=== PATIENT | male | born 1960 | race Caucasian/White ===

== ENCOUNTER 2021-01-09 19:49 | Emergency (ER) | payer OTHER ==
[~2021-01-09] VITALS: Ht 170.2 cm; Wt 79.4 kg
[2021-01-09 19:49] VITALS: BP 127/87
[2021-01-09] MEDS ORDERED: PANTOPRAZOLE 40 MG INJ VIAL IVP ONE (19:55)
[2021-01-09] MEDS ORDERED: ONDANSETRON 4 MG/2 ML VIAL IVP ONE (19:55)
--- NOTE | 2021-01-09 20:00 | NUR ---
BETY FROM [facility], PT. IS A 60 Y/0 MALE THAT CAME INTO ED WITH C/O OF BLOODY VOMIT. PER EMS REPORT, PT. HAD AN EPISODE OF VOMITING BLOOD AROUND 5PM. PT. STATES 0/10 ON THE PAIN SCALE AT THIS TIME. SKIN IS PINK/WARM/DRY; AAOX4; LUNGS CLEAR BL; HR EVEN AND REGULAR; PT DENIES ANY FEVER, CP, SOB, OR COUGH AT THIS TIME; VSS; PATIENT POSITIONED FOR COMFORT; HOB ELEVATED; BEDRAILS UP X2; BED DOWN. ER MD MADE AWARE OF PT STATUS.
--- NOTE | 2021-01-09 20:06 | NUR ---
PT RECIEVED IN ED W/ VENT SETTINGS OF AC/VC 500 +5 f12 PROVIDED BY EMT/FACILITY. PT REFUSED VENT AT THIS TIME AND ED MD IS AWARE. PT WAS PLACED ON CA 60% 12L W/ NO DISTRESS NOTED. CURRENT SPO2 99% HR 111 f28. VENT WAS PLACED ON STDBY AT BEDSIDE W/ SETTINGS PROVIDED BY EMT/FACILITY. VENT REMAINS PLUGGED INTO RED OUTLET W/ AMBU AT BEDSIDE. WILL CONTINUE TO MONITOR.
--- NOTE | 2021-01-09 20:07 | NUR ---
EKG PERFORMED AT BEDSIDE. EKG READS SINUS TACHYCARDIA @ 108
--- NOTE | 2021-01-09 20:11 | NUR ---
xray at bedside
[2021-01-09 20:31] LABS: BASOPHILS # (AUTO) 0.1 K/uL (0.00-0.22); BASOPHILS % (AUTO) 0.3 % (0.0-2.0); EOSINOPHILS # (AUTO) 0.1 K/uL (0-0.4); EOSINOPHILS % (AUTO) 0.6 % (0.0-4.0); HEMATOCRIT 38.2 % (36-52); HEMOGLOBIN 12.3 g/dL (12.0-18.0); LYMPHOCYTES # (AUTO) 3.9 K/uL (2.0-11.5); MEAN CORPUSCULAR HEMOGLOBIN 27 pg (27-31); MEAN CORPUSCULAR HGB CONC 32 g/dL (33-37); MEAN CORPUSCULAR VOLUME 84.4 fL (80-94); MONOCYTES # (AUTO) 0.9 K/uL (0.8-1.0); MONOCYTES % (AUTO) 5.5 % (1.7-9.3); NEUTROPHILS # (AUTO) 11.9 K/uL (1.8-7.7); NEUTROPHILS % (AUTO) 70.6 % (42.2-75.2); PLATELET COUNT (AUTO) 476 K/uL (140-450); RED BLOOD CELL COUNT(AUTO) 4.53 MIL/uL (4.20-6.10); RED CELL DISTRIBUTION WIDTH 15.9 % (11.6-13.7); WHITE BLOOD COUNT (AUTO) 16.9 K/uL (4.8-10.8)
[2021-01-09 20:49] LABS: ALBUMIN 3.9 g/dL (3.4-5.0); ANION GAP 9.6 (8-16); CARBON DIOXIDE 36.4 mmol/L (21-32); CREATININE 0.8 mg/dL (0.6-1.3); TOTAL BILIRUBIN 0.3 mg/dL (0.0-1.0)
[2021-01-09 20:53] LABS: PROTHROMBIN TIME 10.9 secs (10.8-13.4)
--- NOTE | 2021-01-09 21:12 | NUR ---
PT SPO2 WAS 100% AND CA WAS TITRATED 40% 10L PT APPEARS TO BE KENDALL WELL. PT Sx AND Lg AMT ONEAL/BLDY SECR WAS ASPIRATED VIA Sx AREVALO. WILL CONTINUE TO MONITOR
[2021-01-09] MEDS ORDERED: NACL 0.9% 1,000 ML IV ONE (21:40)
--- NOTE | 2021-01-09 22:45 | NUR ---
SUCTIONED PT. FOR SECRETIONS. SECRETIONS APPEARED TO BE GREEN AND BROWN IN COLOR. Addendum: 01/09/21 at 2320 by TIM PT. TOLERATED WELL. ALL NEEDS MET AT THIS TIME.
[2021-01-09] MEDS ORDERED: cefTRIAXone 1,000 MG VIAL ONE (23:35)
--- NOTE | 2021-01-09 23:39 | NUR ---
SPOKE WITH LANE FROM [facility] TO GIVE MORE CLINICAL INFORMATION. PER LANE, WILL CALL BACK WITH BED FOR TRANSFER.
[2021-01-09] MEDS ORDERED: LOV40I SUBQ (23:54)
[2021-01-09] MEDS ORDERED: FLO.1 GT (23:54)
[2021-01-09] MEDS ORDERED: CALC1TAB72 GT (23:54)
[2021-01-09] MEDS ORDERED: ASPI-1822 GT (23:54)
[2021-01-09] MEDS ORDERED: METO25TA GT (23:54)
[2021-01-09] MEDS ORDERED: MELA3TER GT (23:54)
[2021-01-09] MEDS ORDERED: SIME80TA22 GT (23:54)
[2021-01-09] MEDS ORDERED: FEXO-8 GT (23:54)
[2021-01-09] MEDS ORDERED: HYDR-1102 GT (23:56)
[2021-01-09] MEDS ORDERED: ATOR10TA GT (23:56)
[2021-01-10] MEDS ORDERED: MORPHINE SULFATE 4 MG/ML SYR IVP ONE (00:25)
[2021-01-10] MEDS ORDERED: ONDANSETRON 4 MG/2 ML VIAL IVP ONE (00:25)
[2021-01-10] MEDS ORDERED: ONDANSETRON 4 MG/2 ML VIAL ONE (00:25)
--- NOTE | 2021-01-10 00:30 | NUR ---
PT. VOMITED DARK BROWN EMESIS 100CC.
--- NOTE | 2021-01-10 00:30 | NUR ---
ZOFRAN 4MG GIVEN IVP. PATIENT REMAINS ON CARDIAC MONTIOR. VSS.
--- NOTE | 2021-01-10 00:52 | NUR ---
Patient to be transferred to [facility]. Is being transferred due to INSURANCE. Receiving facility has accepting physician and available space. ER physician has signed transfer form. Patient or responsible green party has agreed to transfer and signed form. Patient belongings inventoried and will be sent with patient. Copy of nursing notes, lab reports, EKG, Physicians Orders and X-rays to be sent with patient. Report called to TRI REECE at receiving facility. [facility] [place] ambulance service has been called for transfer. ETA is AT 0230.
--- NOTE | 2021-01-10 00:52 | NUR ---
CALLED REPORT TO TRI REECE ([facility]).
--- NOTE | 2021-01-10 01:07 | NUR ---
RT AT BEDSIDE FOR REVALUATION.
--- NOTE | 2021-01-10 01:13 | NUR ---
PT CURRENTLY ON CA 40% 10L. WATER IS 1/2 FULL W/ REPLACEMENT @ BEDSIDE. PT WAS Sx W/ THK ONEAL SECR W/ HR 117 SPO2 95%. WILL CONTINUE TO MONITOR.
--- NOTE | 2021-01-10 01:55 | NUR ---
PATIENT HAS NO FUTHER EPISODES OF N/V. PATIENT RESTING IN BED WITH EYES CLOSED. RESPIRATIONS ARE EVEN AND UNLABORED. SKIN IS WARM AND DRY TO TOUCH. BED IS LOCKED AND IN LWOEST POSITION. PATIENT REMAINS ON COOL AIR AEROSOL.
--- NOTE | 2021-01-10 02:27 | NUR ---
SUCTIONED PT. WITH GREEN/BROWN SPUTUM. PT. TOLERATED WELL AND VOICES NO COMPLAINTS.
--- NOTE | 2021-01-10 03:08 | NUR ---
[facility] AT BEDSIDE
--- NOTE | 2021-01-10 03:08 | NUR ---
REPORT GIVEN TO GIO BARTLETT WITH [facility] AND DOCUMENTATION GIVEN TO [facility]. RT AT BEDSIDE ASSISTING WITH TRANSFER TO [facility].
[2021-01-10 03:10] VITALS: BP 120/76
--- NOTE | 2021-01-10 03:10 | NUR ---
PT. LEFT VIA GURNEY BY [facility] ACCOMPANIED BY 2 MERCHANDISING COORDINATOR AND 1 RN.
== END 2021-01-10 03:10 | disposition short-term general hospital (02) ==
LOC: MED 19:49
DX: K92.0 Hematemesis (principal); Z20.822 Contact with and (suspected) exposure to COVID-19; R10.13 Epigastric pain; E11.9 Type 2 diabetes mellitus without complications; Z98.890 Other specified postprocedural states
CPT/HCPCS: 36415; 71045; 80053; 83605; 83690; 85025; 85610; 85730; 86886; 86900; 86901; 87040; 87426; 93005; 96361; 96365; 96375; 96376; 99285; C9113; J0696; J2270; J2405; J7030

== ENCOUNTER 2021-01-19 10:46 | Inpatient (IN) | payer OTHER, SELFPAY ==
[~2021-01-19] VITALS: Ht 182.9 cm; Wt 74.8 kg
[2021-01-19 10:46] VITALS: BP 149/76
[~2021-01-19 10:46] MED LIST: ASPI-1822 GT; ATOR10TA GT; CALC1TAB72 GT; FEXO-8 GT; FLO.1 GT; HYDR-1102 GT; LOV40I SUBQ; MELA3TER GT; METO25TA GT; SIME80TA22 GT
--- NOTE | 2021-01-19 10:47 | NUR ---
Patient BIBA ALS from [facility], transferred to bed 9. RN evaluating the patient at bedside.
--- NOTE | 2021-01-19 10:50 | NUR ---
RECEIVED REPORT FROM MEDIC, PATIENT TX HERE FROM [facility] WITH HX OF CARETAKERS NOTING PATIENT WAS EXHIPING SOB AT 1000 AM, sAO2 DROPPED TO 80'S, MEDICS SUMMONED. PATIENT HAS HX OF COVID 19 05/29, WAS INTUBATED, THEN TRACHED, IS ON O2 TO TRACH. BVM RESP PROVIDED BY MEDICS, SAO2 IMPROVED TO 97%. PATIENT ARRIVES AWAKE, ALERT, PALE AND PROFUSELY DIAPHROETIC PLACED ON MATERIAL REQUISITIONER SHOWING ST, SAO2 96%, RT X 2 AT BEDSIDE FOR DEEP SUCTIONING, PLACED PATIENT ON HUMIDIFIED O2 MD UMAÑA DONE, ORDERS RECEIVED. BED LOW AND LOCKED, BOTH SIDE RAILS UP.
[2021-01-19] MEDS ORDERED: NACL 0.9% 1,000 ML IV ONE (11:10)
[2021-01-19] MEDS ORDERED: LEVALBUTEROL 0.63 MG/3 ML NEBU INH ONE (11:10)
--- NOTE | 2021-01-19 11:30 | NUR ---
RT REMAINS AT BEDSIDE MONITORING PATIENTS TRACH AND HUMIDIFIED O2. PATIENT IS ALERT, ABLE TO COMMUNICATE WITH HANDS AND LIPS. URINAL PROVIDED FOR URINE COLLECTION.
--- NOTE | 2021-01-19 11:43 | NUR ---
Blood culture and sample collected, walked to lab and handed to CPT. Khris
--- NOTE | 2021-01-19 12:28 | NUR ---
Isacc dewey swab collected, handed to CPT Khris at ER bedside.
--- NOTE | 2021-01-19 12:32 | NUR ---
# 15 FR Straight catheter with utilizing sterile technique. Immediate return of 100mL brown urine noted. Pt tolerated procedure well.
[2021-01-19 12:34] LABS: ALBUMIN 2.9 g/dL (3.4-5.0); CARBON DIOXIDE 34.9 mmol/L (21-32); CREATININE 0.8 mg/dL (0.6-1.3); TOTAL BILIRUBIN 0.7 mg/dL (0.0-1.0)
--- NOTE | 2021-01-19 12:36 | NUR ---
UA sample collected by straight cath, handed to CPT Nati.
[2021-01-19 12:39] LABS: POTASSIUM 2.9 mmol/L (3.5-5.1)
[2021-01-19 12:46] LABS: HEMATOCRIT 34.9 % (36-52); MEAN CORPUSCULAR HEMOGLOBIN 27 pg (27-31); MEAN CORPUSCULAR HGB CONC 32 g/dL (33-37); MEAN CORPUSCULAR VOLUME 85.6 fL (80-94); PLATELET COUNT (AUTO) 419 K/uL (140-450); RED BLOOD CELL COUNT(AUTO) 4.08 MIL/uL (4.20-6.10); RED CELL DISTRIBUTION WIDTH 15.7 % (11.6-13.7)
[2021-01-19 12:52] LABS: WHITE BLOOD COUNT (AUTO) 25.7 K/uL (4.8-10.8)
[2021-01-19] MEDS ORDERED: VANCOMYCIN 1,000 MG in DEXTROSE 5% 250 ML IV ONE (12:55)
[2021-01-19] MEDS ORDERED: PIPERACILLIN/TAZOBACTAM 3.375 GM in DEXTROSE 5% 50 ML IV ONE (12:55)
[2021-01-19] MEDS ORDERED: NACL 0.9% 1,500 ML IV ONE (12:55)
[2021-01-19] MEDS ORDERED: PIPERACILLIN/TAZOBACTAM 3.375 GM VIAL IV ONE (13:00)
[2021-01-19 13:01] LABS: PROTHROMBIN TIME 12.2 secs (10.8-13.4)
[2021-01-19 13:11] LABS: APPEARANCE,URINE HAZY (CLEAR); BILIRUBIN,URINE 2+ (NEGATIVE); BLOOD, URINE TRACE-I (NEGATIVE); COLOR,URINE BROWN (YELLOW); LEUKOCYTE ESTERASE ,URINE NEGATIVE (NEGATIVE); NITRITE, URINE POSITIVE (NEGATIVE); UGLUCOSE NEGATIVE (NEGATIVE)
[2021-01-19 13:21] LABS: WBC,URINE 0-5 /HPF (0-5)
[2021-01-19 13:21] LABS: LYMPHOCYTES % (MANUAL) 2 % (20-46)
[2021-01-19 13:25] LABS: COARSE GRANULAR CASTS,URINE 0-10 /LPF (None Seen)
[2021-01-19] MEDS ORDERED: VANCOMYCIN 1,000 MG VIAL ONE (13:47)
--- NOTE | 2021-01-19 13:59 | NUR ---
PLACED ON HIGH FLOW 60% FIO2 35L TEMP 36
--- NOTE | 2021-01-19 14:03 | NUR ---
PLACED ON HIGH FLOW FIO2 60% FLOW 35 LPM TEMP 36 DEGRESS
--- NOTE | 2021-01-19 14:10 | NUR ---
RT AT BEDSIDE, PLACED ON HIGH FLOW O2 @ 60% RATE 35, TEMP 36.0 C TOLERATING WELL, RESTING WITH EYES CLOSED.
--- NOTE | 2021-01-19 14:26 | NUR ---
GOLD ASSAYER AT BEDSIDE DRAWING REPEAT LACTIC ACID
--- NOTE | 2021-01-19 15:08 | NUR ---
AWAKE AND ALERT BREATH SOUNDS BILATERAL COARSE RHONCHI TRACHEAL SUCTION FOR MOERATE SEMI THICK YELLOW SECRETIONS AIRWAY PATENT TRANSFERRED PATIENT FROM ED-9 TO MST-115 LOC REMOVED FROM HIGH FLOW TO TRACH MASK PLACED ON SUPPLEMENTAL OXYGEN VIA E-TANK AT 8 LPM TO TRACH MASK SATURATION 99% HR 125 TOLERATED TRANSFER WELL WITHOUT NO APPARENT DISTRESS NOTED
[2021-01-19 15:15] VITALS: BP 129/79
--- NOTE | 2021-01-19 15:15 | NUR ---
PT ARRIVED FROM ER ON GURNEY, PT PLACED ON TELE MONITOR, BEDSIDE REPORT RECEIVED FROM GAME TECHNICIAN, PT AWAKE, ALERT, ON VERBAL AT BASE LINE, FOLLOWS COMMANDS, ABLE TO MOUTH/GESTURE NEEDS, TRACH TO O2, TRANSFERRED TO BED WITH FULL ASSIST, SKIN WARM DRY COLOR WNL, CAP REFILL < 3SEC, SKIN INTACT, ABD SOFT NON DISTENDED, GT IN PLACE, PIV TO RIGHT HAND 20G, VANCO INFUSING, PT ORIENTED TO ROOM AND FLOOR, SAFETY MEASURES IN PLACE, CALL COYNE WITHIN REACH, PLAN OF CARE REVIEWED.
--- NOTE | 2021-01-19 15:16 | NUR ---
PLACED BACK ON HIGH FLOW TO TRACH MASK FIO2 55% FLOW 30 LPM TEMP 36.0 DEGREES F
[2021-01-19] MEDS ORDERED: ZOLPIDEM 5 MG TAB PO PRN (15:20)
[2021-01-19] MEDS ORDERED: ACETAMINOPHEN 325 MG TAB PO PRN (15:20)
[2021-01-19] MEDS ORDERED: POTASSIUM CHLORIDE 10 MEQ TABER PO PRN (15:20)
[2021-01-19] MEDS ORDERED: DOCUSATE SODIUM 100 MG GELCAP PO PRN (15:20)
[2021-01-19] MEDS ORDERED: guaiFENesin DM 200/20 MG-10 ML 10 ML UDC PO PRN (15:20)
[2021-01-19] MEDS ORDERED: ALBUTEROL SULFATE/IPRATROPIU 3 ML SOL IH PRN (15:20)
[2021-01-19] MEDS ORDERED: NACL 0.9% 2,000 ML IV ONE (15:25)
--- NOTE | 2021-01-19 15:31 | NUR ---
REPORTED DR. NY THAT CRITICAL LAB VALUE LACTIC ACID 2.2, NEW ORDER OBTAINED, 2L OF BOLUS, WILL CARRY OUT. BRAD BOOTH.
--- NOTE | 2021-01-19 15:37 | NUR ---
Patient will be admitted to care of DR HINSON. Admited to TELE Will go to room 115A Belongings list completed. Report to OPAL BARTLETT
[2021-01-19 17:03] LABS: CHOL/HDL RATIO 1.7 (1-4.5); FREE T4 (FREE THYROXINE) 1.38 ng/dL (0.76-1.46); MAGNESIUM 1.5 mg/dL (1.8-2.4); PHOSPHORUS 3.7 mg/dL (2.5-4.9); THYROID STIMULATING HORMONE 0.41 uIU/mL (0.34-3.74)
--- NOTE | 2021-01-19 17:03 | NUR ---
REPORTED DR. NY THAT PATIENT'S POTASSIUM LEVEL 2.9, NEW ORDER OBTAINED, WILL CARRY OUT.
--- NOTE | 2021-01-19 17:03 | NUR ---
RECEIVED REPORT FROM CHARGE NURSE BRAD FOR CONTINUITY OF CARE. PATIENT AWAKE, ALERT, BEDREST, TRACH TO T BAR WITH HIGH FLOW 30L, FIO2 55%. O2 SAT 95%. IV TO RIGHT HAND 20G WITH NS BOLUS INFUSING. G TUBE IN PLACE. SKIN WARM AND DRY. TACHYCARDIA, HR 120. LOW JAMEEL SCORE. HIGH RISK FOR SKIN BREAKDOWN. PATIENT ABLE TO ANSWER SIMPLE QUESTIONS BY NODDING HEAD OR SHAKE HEAD. ABDOMEN SOFT NON TENDER. ORIENTED PATIENT TO THE ROOM AND CALL LIGHT. SAFETY MEASURES IN PLACE, WILL CONTINUE TO MONITOR.
[2021-01-19] MEDS ORDERED: CRUSHER, PILL MC ONE (17:05)
[2021-01-19] MEDS: HYDROcodone/APAP 7.5/325 MG 1 TAB PO PRN (17:10)
[2021-01-19] MEDS: SIMETHICONE 80 MG TAB.CHEW GT SCH ×2 (17:10→23:08)
[2021-01-19] MEDS ORDERED: KCL 20 MEQ/WATER INJ PREMIX 200 ML IV SCH (17:15)
[2021-01-19] MEDS ORDERED: POTASSIUM CHLORIDE 20% 40 MEQ/15 ML UDC GT SCH (17:30)
[2021-01-19] MEDS: NACL 0.9% 1,000 ML IV SCH (18:25)
[2021-01-19] MEDS: hydrALAZINE 10 MG TAB GT SCH ×2 (18:29→23:08)
--- NOTE | 2021-01-19 18:29 | NUR ---
HYDRALAZINE GIVEN SCHEDULED FOR BP 143/85, KCL GIVEN FOR K+ 2.9. PATIENT COMPLAINT OF SOB AND NEEDED TO BE SUCTION. RT CALLED AND STATED WILL COME TO CHECK THE PATIENT.
--- NOTE | 2021-01-19 18:35 | NUR ---
RT CALLED AGAIN TO CHECK THE PATIENT. PER RT, HE IS ON THE WAY TO CHECK THE PATIENT.
[2021-01-19] MEDS: ALBUTEROL SULFATE/IPRATROPIU 3 ML SOL IH SCH (18:47)
--- NOTE | 2021-01-19 18:57 | NUR ---
INFORMED DR. HINSON REGARDING THE MAGNESIUM LEVEL 1.5, WILL FOLLOW UP WITH THE MD ORDER.
[2021-01-19] MEDS ORDERED: MAG SULF 2000 MG/WATER PREMIX 50 ML IV ONE (19:00)
--- NOTE | 2021-01-19 19:02 | NUR ---
PT WAS SEEN AND ASSESSED. SPO2 96%. SUCTION MODERATE TO LARGE AMOUNT OF YELLOW THICK SECTIONS FROM TRACH TUBE. HHN TX GIVEN AND PT TOLERATED TX WELL WITH NO ADVERSE REACTION.
--- NOTE | 2021-01-19 19:06 | NUR ---
PT REQUESTED FOR SPEAKING VALVE. HOWEVER PT WAS EDUCATED THAT HE CANNOT HAVE SPEAKING VALVE AT THIS TIME DUO TO INCREASE IN SECRETIONS. WILL ASSESS FOR SPEAKING VALVE LATER.
--- NOTE | 2021-01-19 19:25 | NUR ---
ENDORSED PATIENT TO RN UNIT MANAGER RN FOR CONTINUITY OF CARE. PATIENT IN STABLE CONDITION.
--- NOTE | 2021-01-19 19:30 | NUR ---
RECIEVED BEDSIDE ENDORSEMENT FROM DAY SHIFT RN, PT LYING IN BED RESTING, A&0X1/2, ABLE TO FOLLOW SIMPLE COMMANDS, AFEBRILE, ST ON MONITOR, TRACH COLLOR TO HF NC 30LPM FIO2 55%, ABD SOFT AND NON TENDER TO TOUCH, SKIN WARM DRY AND INTACT, AFEBRILE, GTUBE CLAMPED, INCONTINENT, RW PIV INFILTRATED, DAY SHIFT RN TO INSERT NEW LINE, PT SHOWING NO SIGNS OF ACUTE DISTRESS, SAFETY MEASURES IN PLACE, WILL CONTINUE WITH CURRENT POC
--- NOTE | 2021-01-19 19:40 | NUR ---
DAY SHIFT RN INSERTED NEW PIV LINE, RFA 20 G INFUSING NS @ 100MLS, LFA 20 G SALINE LOCKED
[2021-01-19 20:00] VITALS: BP 159/71
[2021-01-19] MEDS: METOPROLOL 25 MG TAB GT SCH (20:41)
[2021-01-19] MEDS: PIPERACILLIN/TAZOBACTAM 3.375 GM in DEXTROSE 5% 50 ML IV SCH (20:45)
--- NOTE | 2021-01-19 21:10 | NUR ---
ADMINISTERED 2100H MEDICATIONS PER MD ORDERS
--- NOTE | 2021-01-19 22:30 | NUR ---
PT ASSISTED IN TURNING WHILE CHANGING LINEN AND CLEANING
--- NOTE | 2021-01-19 23:12 | NUR ---
ADMINISTERED 0000H MEDICATIONS PER MD ORDERS. ORAL CARE AND SUCTIONING PROVIDED
[2021-01-20] VITALS (17 sets, daily range): BP systolic 49–142; BP diastolic 28–87
--- NOTE | 2021-01-20 00:42 | NUR ---
STARTED GTUBE FEEDING GLUCERNA 1.2 @ 10MLS/HR GOAL RATE 40MLS/HR W/ FWF 250MLS Q6H
[2021-01-20] MEDS: NACL 0.9% 1,000 ML IV SCH (01:20)
--- NOTE | 2021-01-20 02:03 | NUR ---
ORAL CARE AND SUCTIONING GIVEN, PT SHOWING NO SIGNS OF ACUTE DISTRESS
--- NOTE | 2021-01-20 02:40 | NUR ---
PT WAS ABLE TO ASSIST IN TURNING WHILE CHANGING OF LINEN
[2021-01-20] MEDS: PIPERACILLIN/TAZOBACTAM 3.375 GM in DEXTROSE 5% 50 ML IV SCH ×3 (04:04→21:07)
--- NOTE | 2021-01-20 04:04 | NUR ---
ADMINISTERED 0500H MEDICATION PER MD ORDERS
[2021-01-20] MEDS: SIMETHICONE 80 MG TAB.CHEW GT SCH ×3 (05:26→18:49)
[2021-01-20] MEDS: hydrALAZINE 10 MG TAB GT SCH ×3 (05:26→12:36)
--- NOTE | 2021-01-20 05:37 | NUR ---
ADMINISTERED 0600H MEDICATIONS PER MD ORDERS, ORAL CARE AND SUCTIONING PROVIDED
--- NOTE | 2021-01-20 06:02 | NUR ---
PT STILL ON HIGH FLOW. PT TOLERATING WELL. WILL CONTINUE TO MONITOR.
[2021-01-20 06:26] LABS: HEMATOCRIT 33.5 % (36-52); HEMOGLOBIN 10.5 g/dL (12.0-18.0); LYMPHOCYTES % (AUTO) 3.6 % (20.5-51.1); MEAN CORPUSCULAR HEMOGLOBIN 27 pg (27-31); MEAN CORPUSCULAR HGB CONC 32 g/dL (33-37); MEAN CORPUSCULAR VOLUME 85.3 fL (80-94); MONOCYTES # (AUTO) 1.8 K/uL (0.8-1.0); MONOCYTES % (AUTO) 6.4 % (1.7-9.3); NEUTROPHILS # (AUTO) 25.9 K/uL (1.8-7.7); PLATELET COUNT (AUTO) 417 K/uL (140-450); RED BLOOD CELL COUNT(AUTO) 3.92 MIL/uL (4.20-6.10); RED CELL DISTRIBUTION WIDTH 15.9 % (11.6-13.7)
[2021-01-20 06:36] LABS: ANION GAP 8.8 (8-16); CREATININE 0.6 mg/dL (0.6-1.3); POTASSIUM 3.8 mmol/L (3.5-5.1)
[2021-01-20 06:40] LABS: WHITE BLOOD COUNT (AUTO) 28.8 K/uL (4.8-10.8)
[2021-01-20] MEDS: ALBUTEROL SULFATE/IPRATROPIU 3 ML SOL IH SCH ×3 (07:00→19:09)
--- NOTE | 2021-01-20 07:13 | NUR ---
ENDORSED TO DAY SHIFT RN FOR CONTINUITY OF CARE
--- NOTE | 2021-01-20 07:24 | NUR ---
PT RECEIVED FROM PHARMACY SALESPERSON RN. EYES ARE OPEN. PT RESTING IN BED, NO S/SX OF DISTRESS AT THIS TIME. ON HIGH ÁNGELA NC 30L. PT TOLERATING WELL.
--- NOTE | 2021-01-20 07:57 | NUR ---
PT HAD 180 MLS OF EMESIS. PT OFFERED ORAL RINSE REPOSITIONED, AND CLEANED.
[2021-01-20 08:18] LABS: T4 (THYROXINE) 7.7 ug/dL (4.5-12.0)
[2021-01-20] MEDS: HYDROcodone/APAP 7.5/325 MG 1 TAB PO PRN (08:29)
[2021-01-20] MEDS: METOPROLOL 25 MG TAB GT SCH ×2 (08:30→20:40)
--- NOTE | 2021-01-20 08:45 | NUR ---
PT AWAKE AND ALERT. CHANGED TRACH GAUZE. TRACH GAUZA IS DRAINING YELLOW AND RED BLOODY. RN IN ROOM AND AWARE. NO SOB OR DISTRESS NOTED. CURRENTLY ON HIGH FLOW.
[2021-01-20] MEDS: ONDANSETRON 4 MG/2 ML VIAL IM/IVP PRN ×2 (08:53→13:38)
[2021-01-20] MEDS ORDERED: ASPIRIN 81 MG TAB.CHEW GT SCH (09:00)
[2021-01-20] MEDS ORDERED: ENOXAPARIN 40 MG/0.4 ML SYR SUBQ SCH (09:00)
[2021-01-20] MEDS ORDERED: LEVOFLOXACIN 750 MG/D5W PREMIX 150 ML IV SCH (09:00)
[2021-01-20] MEDS ORDERED: MAGNESIUM OXIDE 400 MG TAB GT SCH (09:00)
[2021-01-20] MEDS ORDERED: PANTOPRAZOLE 40 MG TABEC PO SCH (09:00)
[2021-01-20] MEDS ORDERED: ATORVASTATIN 20 MG TAB GT SCH (09:00)
--- NOTE | 2021-01-20 09:01 | NUR ---
PATIENT HAS BEEN SCREENED AND CATEGORIZED HIGH NUTRITION RISK. PATIENT WILL BE SEEN WITHIN 1-2 DAYS OF ADMISSION. 01/20/21-01/21/[address]
[2021-01-20] MEDS ORDERED: INSULIN LISPRO SLIDING SCALE 100 UNITS/ML VIAL SUBQ PRN (09:15)
[2021-01-20] MEDS ORDERED: DEXTROSE 50% 50 ML SYR IVP PRN (09:15)
--- NOTE | 2021-01-20 09:20 | NUR ---
PT HAD 100 ML OF EMESIS. NM PROVIDED EMESIS BAG. PT AND RT PRESENT IN ROOM.
--- NOTE | 2021-01-20 09:21 | NUR ---
PT HAD A VOMITING EPISODE. RN AND PT IN ROOM. VOMIT IS BROWN. NO DISRESS NOTED. CHANGED TRACH GAUZE. WILL CONTINUE TO MONITOR.
--- NOTE | 2021-01-20 10:11 | NUR ---
DC PLANNING: MICHELA SPOKE WITH [facility] AT [place], CONFIRMED THAT THEY RECEIVED FAXED CLINICALS. CM ASSIGNED IS SHARYN, SHE WILL CALL ZOE ABERNATHY WITH ANY CLINICAL QUESTIONS, AND WILL CALL DYAN DIAMOND COORDINATOR WITH CONTINUED AUTH. ENDORSED THAT PATIENT WILL BE PLACED ON VENT OPPOSED TO T-BAR AND THAT CURRENT FIO2 IS 55%, PATIENT IS NOT STABLE FOR TRANSFER TODAY. CM WILL CONTINUE TO FOLLOW FOR NEEDS.
[2021-01-20] MEDS: DEXT 5% /NACL 0.9% 1,000 ML IV SCH ×2 (10:24→19:55)
--- NOTE | 2021-01-20 11:00 | NUR ---
PT HAS 3RD EPISODE OF EMESIS. PT CLEANED AND SAT UP. NO S/SX OF DISTRESS AT THIS TIME
[2021-01-20] MEDS: BLOOD GLUCOSE MONITORING 1 DEV DEV FS SCH ×3 (11:43→20:39)
--- NOTE | 2021-01-20 11:46 | NUR ---
MD KIDD AT BEDSIDE. ASKED TO HAVE PATIENT PLACED ON VENTILATOR. RESPIRATORY AWARE AND FOLLOWING MDS ORDERS. PT EDUCATED VERBALIZED UNDERSTANDING. CHICHO ANA
--- NOTE | 2021-01-20 11:56 | NUR ---
BG IS 194. GAVE 2 UNITS OF INSULIN PER SLIDING SCALE PER MD ORDER. PT TOLERATED.
--- NOTE | 2021-01-20 11:57 | NUR ---
PT VOMITED 50ML. RT IN ROOM, SWITCHING PT TO VENTILATOR. PT TOLERATING. CALL LIGHT WITHIN REACH.
[2021-01-20] MEDS ORDERED: MORPHINE SULFATE 2 MG/ML SYR IVP PRN (12:15)
[2021-01-20] MEDS ORDERED: MORPHINE SULFATE 2 MG/ML SYR ONE (12:16)
--- NOTE | 2021-01-20 12:30 | NUR ---
PLACED PATIENT ON VENTILATOR PER MD KIDD'S ORDERS. AC14,500,+5,100% AND TITRATE FIO2 TOLERATED. MD KIDD AT NURSE STATION. PATIENT HAS SHILEY 6 TRACH AND VT IS NOT DELIVERED. PAGING MD KIDD.
--- NOTE | 2021-01-20 12:40 | NUR ---
CHRISTIANO ED DR TO CHANGE PATIENT'S TRACH PER MD KIDD'S ORDER. ORDER IS TO CHANGE TO PORTEX 7 CUFFED. MONITORING PATIENT. RN AND RT AT BEDSIDE. SN'D SMALL AMOUNT OF RED BROWN SECRETIONS. STOMA IS VERY LARGE. AIR LEAK. ADDED EXTRA GAUZE. BREATH SOUNDS DIMINISHED. GAVE HHN TREATMENT. WILL CONTINUE TO MONITOR PATIENT.
--- NOTE | 2021-01-20 12:40 | NUR ---
ER DOCTOR AND RT PRESENT IN ROOM. ER DOCTOR REPLACED TRACH. PT NOW ON VENTILATOR.
--- NOTE | 2021-01-20 12:50 | NUR ---
PER DR. KIDD SAID TO TRANSFER PT TO ICU.
--- NOTE | 2021-01-20 12:50 | NUR ---
TRACH CHANGED BY ED MD. PT NOW HAS PORTEX 7 CUFFED. VENT SETTINGS CHARTED. VOLUMES STILL LOW. OAGED MD KIDD. PER MD KIDD TO TRANSFER PATIENT TO ICU. RN AWARE. WILL TRANSFER PATIENT. WILL CONTINUE TO MONITOR.
[2021-01-20] MEDS ORDERED: LORazepam 2 MG/ML VIAL ONE (12:52)
--- NOTE | 2021-01-20 13:15 | NUR ---
REPORT GIVEN TO articulation officer. FAMILY UPDATED ON CONTINUITY OF CARE. FAMILY VERBALIZED UNDERSTANDING . CHICHO [phone] STATED SHE WILL CALL FOR ANY UPDATES AND VERBALIZED GRATITUDE FOR UPDATES THROUGH OUT THE SHIFT.
--- NOTE | 2021-01-20 13:20 | NUR ---
PATIENT TRANSFERRED TO ICU WITH NO INCIDENT. WILL CONTINUE TO MONITOR.
[2021-01-20] MEDS ORDERED: PROPOFOL 1000 MG/100 ML PREMIX 100 ML IV ONE (13:25)
--- NOTE | 2021-01-20 13:25 | NUR ---
PATIENT RECEIVED IN ICU BED 5 FROM ED NURSE VIA MST BED. PATIENT SUPINE, HOB 30 DEGREES. LABORED BREATHING WITH ACCESORY MUSCLE USE. TRACH TO VENT: ACVC FIO2 100%, VT 500, RR 14, PEEP 7. G TUBE IN PLACE, FEEDING ON HOLD DUE TO PATIENT VOMITING 4 TIMES IN MST. R FA 20G, L FA 20G INFUSING D5 @ 100 ML/HR. CHARGE NURSE, RT, AND RN AT BEDSIDE SETTLING PATIENT. SOCIAL WORK ASSOCIATE IN PLACE, SAFETY MEASURES IN PLACE.
--- NOTE | 2021-01-20 13:25 | NUR ---
PT TRANSFERRED TO ICU
[2021-01-20] MEDS ORDERED: NACL 0.9% 1,000 ML IV SCH (13:30)
[2021-01-20] MEDS ORDERED: PROPOFOL 1000 MG/100 ML PREMIX 100 ML IV PRN (13:30)
[2021-01-20] MEDS ORDERED: NOREPINEPHRINE 4 MG in DEXTROSE 5% 250 ML IV PRN (13:35)
--- NOTE | 2021-01-20 13:45 | NUR ---
BOLUS RUNNING AT THIS TIME. MD ORDERS IN: PROPOFOL, ABGS, PICC LINE, XRAY.
--- NOTE | 2021-01-20 14:00 | NUR ---
ABG DONE WITH NO INCIDENT. PAGED MD KIDD FOR RESULTS. NEW SETTINGS CHARTED. WILL CONTINUE TO MONITOR PATIENT.
--- NOTE | 2021-01-20 14:18 | NUR ---
PT. WITH LOW JAMEEL SCALE AT HIGH RISK, CONTINUE TO FOLLOW PRESSURE INJURY PREVENTION INTERVENTIONS. -TURN AND REPOSITION PATIENT Q 2H -ASSESS AND MONITOR SKIN CONDITION DURING POSITION CHANGE -OFFLOAD BILATERAL HEELS BY PLACING PILLOWS UNDER CALVES AT ALL TIMES, UNLESS OTHERWISE CONTRAINDICATED -PRESSURE REDISTRIBUTION BY PLACING PILLOWS AND OFFLOADING SACRALCOCCYX -KEEP SKIN CLEAN AND DRY AT ALL TIMES.
--- NOTE | 2021-01-20 14:53 | NUR ---
01/20/21 RD INITIAL ASSESSMENT COMPLETED PLEASE REFER TO NUTRITION ASSESSMENT UNDER CARE ACTIVITY FOR ESTIMATED NUTRITIONAL NEEDS. 1. IF PATIENT IS NOT TOLERATING ENTERAL NUTRITION, HOLD. RESTART WHEN MEDICALLY APPROPRIATE AT 10 ML/HR AND INCREASE BY 10 ML/HR Q4H. 2. CURRENT TUBE FEEDING ORDER IS GLUCERNA 1.2 @ 40 ML/HR 3. WHEN PATIENT IS MEDICALLY CLEARED RECOMMEND INCREASING GOAL RATE TO GLUCERNA 1.2 @ 70 ML/HR WITH FREE WATER FLUSH OF 225 ML Q6H -THIS WILL PROVIDE 2016 KCAL AND [address]. [address] TO FOLLOW-UP 2-3 DAYS, HIGH RISK YOU DOTY RD
[2021-01-20] MEDS ORDERED: VANCOMYCIN 500 MG in DEXTROSE 5% 100 ML IV SCH (15:00)
[2021-01-20] MEDS ORDERED: VANCOMYCIN PER PHARMACY MC PRN (15:00)
[2021-01-20] MEDS: VANCOMYCIN 1,000 MG in DEXTROSE 5% 250 ML IV SCH (15:39)
--- NOTE | 2021-01-20 15:52 | NUR ---
PATIENT DESATURATING TO 34% SPO2 ON DOCUMENTED VENT SETTINGS. RT CALLED AND NOW AT BEDSIDE. 1000ML NS BOLUS STARTED AT THIS TIME PER MD ORDERS, ALL NEW TUBING USED.
--- NOTE | 2021-01-20 16:10 | NUR ---
LEVOPHED STARTED AT 10MCG/MIN PER ED DR. CRAIG, TO TITRATE KEEP MAP OVER 65.
--- NOTE | 2021-01-20 16:14 | NUR ---
DC PLANNING: PATIENT IS TRACH/VENT MICHELA SPOKE WITH PATIENTS PARI BY PHONE. [facility] PATIENT HAD COVID LAST YEAR, AND HAS HAD HOSPITALIZATIONS AND PLACEMENT IN ACUTE REHAB SINCE THEN INCLUDING [facility]. CAME FROM [facility] BECAUSE OF SOB AND VOMITING, PARI STATES THAT PATIENT WAS EXTUBATED AFTER STAYING AT [facility] IN [place], WAS RECANNULATED BECAUSE OF PNEUMONIA. PATIENT WAS ABLE TO DRESS HIMSELF, STAND AND SIT ON EDGE OF BED WITH ASSIST OF 1. WAS ABLE TO EAT 3 MEALS, RECEIVED SUPPLEMENTAL PEG FEEDINGS NOC. WAS CONTINENT WHILE AT [facility]. PATIENT TRANSFERRED TO ICU TODAY, PARI AMBIVALENT ABOUT PATIENT RETURNING TO [facility]. DISCUSSED THE POSSIBILITY OF TRANSFER ONCE PATIENT IS STABLE IF THAT IS WHAT [facility] DECIDES. NO FURTHER QUESTIONS FROM PARI, MICHELA WILL CONTINUE TO FOLLOW FOR NEEDS. Addendum: 01/20/21 at 1623 by Moni Silva CM MICHELA SPOKE WITH SHARYN ([phone])MICHELA FOR [facility] REGARDING PATIENT STATUS ENDORSED PATIENT TRANSFER TO ICU, TRACH TO VENT AND INCREASED FIO2, SHARYN STATES PATIENT IS AUTH'D FOR CONTINUED STAY, MICHELA WILL UPDATE HER TOMORROW. SHARYN STATES SHE WILL FAX LETTER OF CONTINUED AUTHORIZATION.
--- NOTE | 2021-01-20 16:18 | NUR ---
PICC LINE NURSE AT BEDSIDE AT THIS TIME. STAT CHEST XRAY ORDERED FOR PLACEMENT CONFIRMATION.
--- NOTE | 2021-01-20 16:25 | NUR ---
2ML EPINEPHRINE ADMINISTERED IVP AT THIS TIME. PATIENT BECAME BRADYCARDIC TO 44 BPM.
--- NOTE | 2021-01-20 16:43 | NUR ---
BLOOD GLUCOSE CHECKED, 156, NO INSULIN COVERAGE, PATIENT FEEDING ON HOLD DUE TO VOMITING EPISODES EARLIER TODAY.
--- NOTE | 2021-01-20 16:45 | NUR ---
DR KIDD SPEAKING TO ON THE PHONE AT THIS TIME. EXPLAINING PATIENT STATUS AND ANSWERED ALL QUESTIONS.
[2021-01-20] MEDS ORDERED: NOREPINEPHRINE 16 MG in DEXTROSE 5% 250 ML IV PRN (16:50)
--- NOTE | 2021-01-20 16:50 | NUR ---
MD KIDD AT BEDSIDE. CHANGED TRACH TO SHILEY 8 XLT. MD KIDD MADE VENT CHANGES. A/C PC 36 RR 30 IT 0.80 PEEP 10 AND ORDER TO TITRATE TOLERATED. WILL CONTINUE TO MONITOR PATIENT.
--- NOTE | 2021-01-20 17:10 | NUR ---
ABG DONE WITH NO INCIDENT. PAGEWard KIDD WAITING FOR CALL BACK.
[2021-01-20] MEDS: PHENYLEPHRINE 10 MG in NACL 0.9% 250 ML IV PRN ×3 (17:18→22:00)
[2021-01-20] MEDS ORDERED: MIDAZOLAM MDV 100 MG in NACL 0.9% 80 ML IV SCH (17:20)
--- NOTE | 2021-01-20 17:26 | NUR ---
PATIENT HR WENT IN 40S. BAGGING PATIENT AT THIS TIME. MEDICAL STAFF AT BEDSIDE. Addendum: 01/20/21 at 1727 by Segun Govea RT WRONG TIME. CORRECT TIME IS 4144
[2021-01-20] MEDS ORDERED: fentaNYL citrate - 50mL vial 2.5 MG in NACL 0.9% 200 ML IV PRN (17:45)
--- NOTE | 2021-01-20 18:53 | NUR ---
PATIENT AND RT AT BEDSIDE AT THIS TIME. PATIENT CONDITION EXPLAINED TO , ALL QUESTIONS ANSWERED, SHE VERBALIZES UNDERSTANDING.
[2021-01-20] MEDS ORDERED: ALBUTEROL SULFATE/IPRATROPIU 3 ML SOL IH SCH (19:00)
[2021-01-20] MEDS: ACETYLCYSTEINE 10% (100 MG/ML) 100 MG/ML VIAL INH SCH (19:09)
--- NOTE | 2021-01-20 19:16 | NUR ---
ENDORSED TO COMPLIANCE AND CONTROL ANALYST NURSE FOR CONTINUITY OF CARE.
--- NOTE | 2021-01-20 19:20 | NUR ---
RECIEVED BEDSIDE ENDORSEMENT FROM DAY SHIFT RN, PT IN CRITICAL CONDITION, FAMILY AT BEDSIDE, RASS -3, ST ON MONITOR, TRACH TO VENT, AC PC FIO2 100% RATE 30 PEEP 10, [address] AND CLAMPED, FC IN PLACE DRAINING VIA GRAVITY, ESTELLA PICC INFUSING LEVOPHED, NEOSYNEPHRINE, FENTANYL, VERSED AND D5 NS, SKIN WARM DRY AND INTACT, SAFETY MEASURES IN PLACE, WILL CONTINUE WITH CURRENT POC
[2021-01-20] MEDS ORDERED: PIPERACILLIN/TAZOBACTAM 3.375 GM VIAL IV ONE (20:50)
[2021-01-20] MEDS: ATROPINE 0.4 MG/ML VIAL IVP SCH ×2 (21:30→21:31)
[2021-01-20] MEDS ORDERED: ATROPINE 1 MG/10 ML SYR IVP ONE (21:30)
--- NOTE | 2021-01-20 21:34 | NUR ---
PT HAS NO PULSE, CODE BLUE CALLED, CPR STARTED
--- NOTE | 2021-01-20 21:34 | NUR ---
AT BEDSIDE. PT HAS NO PULSE. CODE BLUE CALLED. CPR STARTED. SEE CODE BLUE SHEET FOR DETAILS.
--- NOTE | 2021-01-20 21:50 | NUR ---
DURING CODE BLUE, DR. CRAIG CHANGED PT TRACH TUBE AND INTUBATED PT WITH ETT SIZE 8 AND SECURED @ 26CM. COLOR CHANGE ON CO2 DETECTOR. XRAY RESULTS RECOMMENDED TO PULL BACK ETT. DR. CRAIG AT BEDSIDE AND ETT WAS PULL BACK. ANOTHER XRAY WAS TAKEN.
--- NOTE | 2021-01-20 22:35 | NUR ---
AT BEDSIDE. PT HAS NO PULSE. CODE BLUE CALLED. CPR STARTED. SEE CODE BLUE SHEET FOR DETAILS.
--- NOTE | 2021-01-20 22:35 | NUR ---
PT HAS NO PULSE, CODE BLUE CALLED, CPR STARTED
[2021-01-20] MEDS ORDERED: PHENYLEPHRINE 10 MG/ML VIAL ONE (22:55)
--- NOTE | 2021-01-20 23:28 | NUR ---
AT BEDSIDE. PT HAS NO PULSE. CODE BLUE CALLED. CPR STARTED. SEE CODE BLUE SHEET FOR DETAILS.
--- NOTE | 2021-01-20 23:28 | NUR ---
PT HAS NO PULSE, CODE BLUE CALLED, CPR STARTED
--- NOTE | 2021-01-20 23:29 | NUR ---
ABG RESULTS WERE REPORTED TO DR. CRAIG.
--- NOTE | 2021-01-20 23:36 | NUR ---
VENT SETTINGS CHANGED AFTER GETTING PULSE. AC/VC RR 32, VT 325, +15, FiO2 100%. SPO2 92% DR. CRAIG AT BEDSIDE AND AGREED TO CURRENT SETTINGS. WILL CONTINUE TO MONITOR PT.
[2021-01-20] MEDS ORDERED: SODIUM BICARBONATE 8.4% PFS 50 MEQ/50 ML SYR IVP ONE (23:38)
--- NOTE | 2021-01-20 23:50 | NUR ---
DR. NEAL CALLED BACK. DOCTOR WAS UPDATED THAT PT CODED 2X; LAST ABG RESULTS; CURRENT VENT SETTINGS, AND MEDS ORDERS GIVEN BY DR. CRAIG DURING CODE BLUE. DR. NEAL OKAY WITH ORDERS. AND CONTINUE TO MONITOR PT.
[2021-01-21] VITALS: BP 98/40
[2021-01-21] MEDS: hydrALAZINE 10 MG TAB GT SCH
[2021-01-21] MEDS: SIMETHICONE 80 MG TAB.CHEW GT SCH
[2021-01-21] MEDS ORDERED: SODIUM BICARBONATE 4.2% 5 MEQ/10 ML SYR IV ONE ×2 (00:02)
[2021-01-21 00:09] VITALS: BP 98/40
[2021-01-21] MEDS: VANCOMYCIN 1,000 MG in DEXTROSE 5% 250 ML IV SCH (00:21)
[2021-01-21] MEDS ORDERED: SODIUM BICARBONATE 8.4% 150 MEQ in DEXTROSE 5% 1,000 ML IV SCH (00:25)
[2021-01-21] MEDS: PHENYLEPHRINE 10 MG in NACL 0.9% 250 ML IV PRN (00:30)
[2021-01-21] MEDS ORDERED: SODIUM BICARBONATE 4.2% 5 MEQ/10 ML SYR IV SCH ×2 (00:35)
--- NOTE | 2021-01-21 00:44 | NUR ---
PT's ON PHONE REQUESTING TO STOP ALL RESUSCITATION ORDERS, PT's PARI REPORTS "I DO NOT WANT HIM TO SUFFER ANYMORE, PLEASE DISCONTINUE COMPRESSIONS AND ALL SUSTAINING MEDICATIONS". PRIMARY NURSE WITNESSED VIA PHONE. PAGED PRIMARY DOCTOR.
--- NOTE | 2021-01-21 00:45 | NUR ---
PT HAS NO PULSE, CODE BLUE CALLED, CPR STARTED
--- NOTE | 2021-01-21 00:50 | NUR ---
PAGED/CALLED DR. HINSON 2x. NO ANSWER. CALLED DR. NEAL. WAITING FOR CALL BACK.
--- NOTE | 2021-01-21 00:57 | NUR ---
DR. HINSON CALLED BACK, UPDATED ON PT CONDITION. MADE AWARE OF PT's 'S CHANGE OF CODE STATUS REQUEST. 2 NURSES VERIFIED/WITNESSED VERBAL REQUEST OVER THE PHONE. PT's DAUGHTER AT BEDSIDE DURING CURRENT AND 4TH CODE. PULSES PALPATED AND ST ON MONITOR. WILL CONTINUE TO MONITOR AND CONTINUE WITH NEW CODE STATUS. ER MD AT BEDSIDE WITH AS400 DEVELOPER AND PATIENT's DAUGHTER.
[2021-01-21 01:00] VITALS: BP 113/54
[2021-01-21 01:18] VITALS: BP 96/41
[2021-01-21] MEDS: ALBUTEROL SULFATE/IPRATROPIU 3 ML SOL IH SCH (01:18)
[2021-01-21] MEDS: ACETYLCYSTEINE 10% (100 MG/ML) 100 MG/ML VIAL INH SCH (01:18)
[2021-01-21 02:00] VITALS: BP 53/52
--- NOTE | 2021-01-21 02:07 | NUR ---
TIME OF CALLED BY ER PIERCE FOXAL
--- NOTE | 2021-01-21 04:15 | NUR ---
[employer]HAWN [employer] AT BEDSIDE TO HIDE COOKING OPERATOR THE PT
--- NOTE | 2021-01-21 04:19 | NUR ---
CONTACTED THE BASIM TO INFORM THE FAMILY THAT DESHAWN ESCOBEDO HAS PICKED UP THE PT
[2021-01-21] MEDS ORDERED: PANTOPRAZOLE 40 MG INJ VIAL IVP SCH (09:00)
== END 2021-01-21 04:15 | DRG 720 ==
LOC: MED 10:46 → MTU 14:52 → MIC 01-20 13:15
PROVIDERS: ADMIT Family Medicine; ATTEND Family Medicine
PROC: 5A1935Z Respiratory Ventilation, Less than 24 Consecutive Hours (ICD-10-PCS; principal; 2021-01-20)
PROC: 02HV33Z Insertion of Infusion Device into Superior Vena Cava, Percutaneous Approach (ICD-10-PCS; 2021-01-20)
PROC: 5A1935Z Respiratory Ventilation, Less than 24 Consecutive Hours (ICD-10-PCS; 2021-01-21)
PROC: 0BH17EZ Insertion of Endotracheal Airway into Trachea, Via Natural or Artificial Opening (ICD-10-PCS; 2021-01-21)
PROC: 5A12012 Performance of Cardiac Output, Single, Manual (ICD-10-PCS; 2021-01-21)
DX: A41.9 Sepsis, unspecified organism (principal); J96.21 Acute and chronic respiratory failure with hypoxia; J69.0 Pneumonitis due to inhalation of food and vomit; N17.9 Acute kidney failure, unspecified; E44.0 Moderate protein-calorie malnutrition; R64 Cachexia; Z93.0 Tracheostomy status; Z66 Do not resuscitate; I46.9 Cardiac arrest, cause unspecified; E11.9 Type 2 diabetes mellitus without complications; E78.2 Mixed hyperlipidemia; E83.42 Hypomagnesemia; E86.0 Dehydration; E87.6 Hypokalemia; I10 Essential (primary) hypertension; Z20.822 Contact with and (suspected) exposure to COVID-19; R13.10 Dysphagia, unspecified; N39.0 Urinary tract infection, site not specified; Z87.891 Personal history of nicotine dependence; Z93.1 Gastrostomy status; Z79.82 Long term (current) use of aspirin; Z79.899 Other long term (current) drug therapy; Z86.16 Personal history of COVID-19; Z68.22 Body mass index [BMI] 22.0-22.9, adult
CPT/HCPCS: 36415; 36600; 71045; 80048; 80053; 81001; 82150; 82803; 82948; 83036; 83605; 83690; 83735; 83880; 84100; 84436; 84439; 84443; 84479; 84484; 85025; 85610; 87040; 87070; 87081; 87086; 87205; 89220; 93005; 94002; 94640; 96365; 97163-GP; 99291; J0461; J1650; J1815; J1956; J2060; J2250; J2270; J2370; J2405; J2543; J2704; J3010; J3370; J3475; J3480; J3490; J7030; J7060; J7614